=== PATIENT | male | born 1955 | race Caucasian/White ===

== ENCOUNTER → 2017-12-18 11:50 | Outpatient (CLI) | payer OTHER, SELFPAY ==
--- NOTE | 2017-12-18 | DI.MRI.S_ITS ---
PROCEDURE: MR LUMBAR SPINE WO CON INDICATIONS: INTERVERTEBRAL DISC DISORDERS WITH RADICULOPATHY TECHNIQUE: Noncontrast sagittal T1 spin echo and T2 fast echo, sagittal STIR, axial T1 and T2 fast spin echo through the lumbar spine. In cases with scoliosis, additional coronal T2 fast spin echo may be performed. COMPARISON: [facility], CT, ABDOMEN W&WO CONTRAST, 05/14/2016, 12:06. FINDINGS: Image quality: Excellent. Alignment and Curvature: There is grade I L3 on L4 anterolisthesis and L5 on S1 retrolisthesis. Bone Marrow: Marrow is of overall normal signal. Reactive endplate changes are present at L5-S1. No wedge compression deformities. A small cyst is present within the inferior posterior L3 endplate unchanged from the CT dated 05/14/16. Spinal Cord: Conus medullaris terminates at the T12 level. Visualized cord demonstrates normal signal and size. Paraspinous Soft Tissues: No paravertebral masses. L1-L2: Normal appearance. L2-L3: Mild disc bulge. Mild facet and ligamentum flavum hypertrophy. No canal stenosis. Mild bilateral foraminal narrowing. L3-L4: Anterolisthesis. Moderate disc desiccation and height loss. Broad-based disc bulge. Moderate facet and ligamentum flavum hypertrophy. Severe canal stenosis. Severe left and mild right neuroforaminal narrowing. There is flattening of the exiting left nerve root. L4-L5: Mild disc desiccation. Broad-based disc bulge. Mild facet ligamentum flavum hypertrophy. Mild canal stenosis. No neural foraminal stenosis. There is a small posterior focal high intensity zone. L5-S1: Severe disc desiccation and height loss. Extensive reactive endplate changes. Broad-based disc bulge. Moderate facet sclerosis. No canal stenosis. Severe bilateral neuroforaminal stenosis. Small posterior focal high intensity zone. IMPRESSION: 1. Grade I anterolisthesis, disc desiccation and height loss, broad-based disc bulge, and facet and ligamentum flavum hypertrophy at L3-4 with resultant severe canal stenosis and severe left neuroforaminal stenosis. 2. Posterior annular tears at L4-5 and L5-S1. 3. Mild canal stenosis at L4-5 secondary to disc bulge and facet hypertrophy. 4. Severe bilateral neuroforaminal stenosis at L5-S1. 5. Severe degenerative disc disease at L5-S1 with grade I retrolisthesis. Dictated by: Lo Ramos M.D. on 12/18/2017 at 12:31 Approved by: Lo Ramos M.D. on 12/18/2017 at 12:38
== END ==
PROVIDERS: Family Provider Orthopaedic Surgery; PCP Family Medicine Geriatric Medicine; Visit Provider Family Medicine Geriatric Medicine
DX: M51.16 Intervertebral disc disorders with radiculopathy, lumbar region (principal); M51.17 Intervertebral disc disorders with radiculopathy, lumbosacral region; M43.16 Spondylolisthesis, lumbar region; M48.061 Spinal stenosis, lumbar region without neurogenic claudication; M48.07 Spinal stenosis, lumbosacral region
CPT/HCPCS: 72148

== ENCOUNTER 2018-02-27 09:50 | Inpatient (IN) | payer OTHER, SELFPAY ==
[2018-02-05 10:59] VITALS: BMI 22.2
[2018-02-27] VITALS (22 sets, daily range): BP systolic 114–168; BP diastolic 69–99; PULSE 82–102; RESP 10–18; TEMP 36–36.8; O2SAT 93–98; BMI 21.6
--- NOTE | 2018-02-27 | DI.RAD.S_ITS ---
PROCEDURE: XR LUMBAR SPINE 2-3V INDICATIONS: TLIF TECHNIQUE: 2 views of the lumbar spine were acquired. COMPARISON: None. FINDINGS: 2 spot fluoroscopic images demonstrating L3-L4 and L5-S1 posterior spinal fixation with interbody grafts. There is expected intraoperative alignment. Dictated by: Larry Rubio M.D. on 02/27/2018 at 18:30 Approved by: Larry Rubio M.D. on 02/27/2018 at 18:32
[2018-02-27] MEDS: LACTATED RINGERS 1,000 ML 42 ML IV ×2 (11:16→15:41)
--- NOTE | 2018-02-27 12:32 | PM.PREOP ---
Pre-operative Note Interval Note History & Physical reviewed/Exam performed by Physician: Yes Changes to H&P: No
--- NOTE | 2018-02-27 12:32 | PM.OP.1 ---
Operative Date/Time/Diagnoses Date of procedure: 02/27/18 Time of procedure: 17:34 Pre-op diagnosis: Lumbar stenosis with radiculopathy Lumbar spondylolisthesis Post-op diagnosis: same Procedure & Clinicians Procedure: L3-4 anterior fusion with cage L3-4 posterior fusion L5-S1 TLIF (post/post innerbody fusion) with cage L3 through S1 screws Iliac crest bone graft L3-4 laminectomy L5-S1 laminectomy Use of microscope Placement of epidural catheter Same procedure as scheduled: Yes Indications: [age] year old male with intractable pain from stenosis. They had failed conservative management and requested operative intervention. Risks and benefits of surgery were discussed and appropriate consents were obtained. Surgeon: Marty Cash Car Inspection And Repair Manager: Barb Hu Anesthesia Type: General Operative Notes Findings: None Closure Type: primary Specimen(s): none sent Implants & Drains: NuVasive MAS Reline screws NuVasive XLIF cage Globus Rise cage Applied: catheter Estimated Blood Loss (mL): 50 Blood products transfused: none Procedure in detail: Patient was brought to the operating room and intubated on the table. Time-out was performed. They were then rolled over to the lateral decubitus position with the [id number]. The table was bent and they were taped down in the correct position. X-rays were taken to confirm a true AP and lateral. Preoperative antibiotics were given. The left flank was prepped and draped in standard sterile fashion. We were having some difficulties with neuro monitoring. He was having large spikes primarily in the L5 and S1 distribution. We checked all the needles and wires and everything was fine. The patient was not paralyzed but he was under deep anesthetic. We could see fasciculations in his muscles in his back and also down in his calves there spontaneously happening without any neural monitoring. As I needed the upper levels only for the L3-4 XLIF, we elected to proceed at this point as we had good signals at the upper levels. Using fluoroscopy, a 3 cm incision was made above the iliac crest. We bluntly dissected down with Metzenbaum scissors and split the 3 abdominal muscle layers. We dissected out the retroperitoneal space and using finger guidance, brought our 1st dilator down to the psoas muscle. Using neuromonitoring and fluoroscopy, we placed it through the psoas onto the L3-4 disc space in an anterior position and gradually pulled the dilator posteriorly along the disc space. We placed our guidewire and measured our depth for the retractor. We then dilated with the next 2 dilators and then placed our retractor over the dilators. Position was confirmed with fluoroscopy and the retractor was locked down to the bar. We opened up the retractor and checked with neuro monitoring. We then placed the elmer and again checked with neuro monitoring. The retractor was opened further and the ALL retractor was placed. An annulotomy was performed. We then performed a complete diskectomy with ring curette, pituitary, box osteotome. A Green was advanced across the disc space under fluoroscopy to release the lateral annulus on the opposite side. We then used sequentially larger trials and confirmed under fluoroscopy. An XLIF cage was packed with Osteocell bone graft and impacted into the L3-4 disc space with fluoroscopy for the anterior fusion at this level. The wound was irrigated. The retractor was closed down. The elmer was removed. We carefully removed the retractor with direct visualization to make sure there was no neurovascular or abdominal injury. Final x-rays were taken. The muscle fascia was closed, superficial tissue was closed. The skin was closed. Sterile dressing was placed. The patient was then rolled over on the well-padded prone position on the Price table. Our neuro monitoring was much better by this point. He still had some spontaneous activity but it had mostly down in all of the distributions. Using fluoroscopy for localization, a 10 cm incision was made to the left the midline. Used the Bovie to come down to split the fascia. We then began placing our screws. Using fluoroscopy and neuro monitoring, we percutaneously placed Jamshidi needles down the left pedicles of L3, L4, L5 and S1. These were switched to guidewires. We then tapped and placed our screw shanks at L5 and S1. We open up the retractor and cleared out the posterolateral gutter as well as medially along the lamina the gutter was decorticated with a bur on the transverse process and the sacral ala. We then brought in the microscope. A laminectomy was performed at L5-S1 with a bur and Kerrison rongeurs. We cleared out the central canal as well as open up the neural foramen. This required a facetectomy to decompress. At the end we could run the ball probe cephalad caudally across the midline into the foramen and everything was opened. We then began prepping for the TLIF. We resected more of the facet and cleared off medially until we were flush with the pedicle. We carefully retracted the dura and expose the disc space. This was covered with an osteophyte. We used fluoroscopy and broke through the osteophyte and then went into the disc space with paddles and Kayleen. We had used fluoroscopy to advance the paddle down as the patient had an S shaped disc space. We used pituitaries and curettes to prep the disc space. We held the disc space open with the paddle and locked our screws and distraction. We then placed Osteocel bone graft into the disc space at L5-S1. We then impacted the globus Rise cage and expanded it under fluoroscopy. This completed the posterior interbody portion of the TLIF at L5S1. We released our retraction and then we placed our screw heads on, measured and placed a juan francisco. The set screws were locked down The wound was copiously irrigated. A small stab incision was made over the PSIS and a Jamshidi needle was placed into the iliac crest and several mL of bone marrow was aspirated. This was mixed with our locally harvested bone graft as well as Osteocel and placed in the posterolateral gutter for the posterolateral portion of the TLIF at L5-S1. We then went up to L3-4. Again using fluoroscopy and monitoring we tapped and then placed our screws and then opened up our retractor blades. We cleared out the gutter and medially. We decorticated the transverse processes with a bur. We brought the microscope back in. We completed a laminectomy at L3-4 with Kerrisons and a bur. We carefully depress the dura and reached across the opposite side to clear out the central canal. In the end we could sweep the ball probe cephalad, caudally, across the midline, and in the foramen and everything was opened. The wound was irrigated. An epidural catheter was primed with 4mL of 0.5% bupivacaine, 100 mcg fentanyl, 4 mg Duramorph, 1 mg Stadol. The dura was depressed under the cephalad lamina with a ball probe and the epidural catheter was gently advanced 6 cm cephalad. We then locked the screw heads on. The juan francisco was measured, placed, and the set screws locked down. The fascia was then closed. The epidural was then injected without resistance. The catheter was pulled and we closed more over the fascia. We then went to the right-hand side. Again using fluoroscopy, a 10 cm longitudinal incision was made to the right of the midline. We made 2 small fascia incisions at L3-4 and L4-5 We percutaneously placed a Jamshidi needles with fluoroscopy and neuro monitoring on the pedicles of L3, L4, L5, and S1 on the right-hand side. We tapped and then placed our screws with monitoring and fluoroscopy. We placed rods connecting L3-4 and L5-S1. They were locked down and tightened. The wound was irrigated. The fascia was closed. Vancomycin powder was placed in the wounds. The superficial and skin were closed. Sterile dressing was placed. The patient was then rolled over, extubated, brought to the recovery room with no complications. Complications: none Condition: stable Disposition: PACU Plan for aftercare: Inpatient. Up with physical therapy.
[2018-02-27] MEDS: CEFAZOLIN 2 GM/100 ML FROZ.PIGGY IV ×2 (13:23→21:10)
--- NOTE | 2018-02-27 14:11 | SUR.OPER ---
Right lateral on padded OR table. Head on pillow, gel axillary roll, pillow to support left arm. Legs flexed, pillows between legs, gel pad under down leg and ankle. Multiple passes of 3 inch cloth tape across shoulder, hip, upper and lower legs to secure patient on OR table. Prone on spine table, head in foam head support, padded chest and pelvic supports, gel pad at knees, lower legs supported by pillows; nipples, genitalia and toes free of pressure, arms secured on foam padded arm boards at <90 degrees abduction. Tape over blanket at thigh secured to table.
[2018-02-27] MEDS: SODIUM CHLORIDE 0.9% 1,000 ML, GENTAMICIN 80 MG IRR (14:26)
[2018-02-27] MEDS: BUPIVACAINE 0.5% (PF) 4 ML, MORPHINE-PF 4 MG, BUTORPHANOL 1 MG, fentaNYL 100 MCG INJ (14:27)
[2018-02-27] MEDS: VANCOMYCIN 1,000 MG VIAL 1000 MG TOP (14:28)
[2018-02-27] MEDS: THROMBIN (BOVINE) 5,000 UNIT VIAL 5000 UNIT TOP (14:28)
[2018-02-27 15:48] LABS: BUN Creatinine Ratio 21.4 (6-22); Blood Urea Nitrogen 15 mg/dL (9-20); Calcium 8.9 mg/dL (8.4-10.2); Carbon Dioxide 25 mmol/L (22-32); Chloride 104 mmol/L (98-107); Estimated Glomerular Filt Rate > 60.0 mL/min (>60); Glucose 112 mg/dL (80-110); HEMOLYSIS < 15 (0-50); Magnesium 1.6 mg/dL (1.6-2.3); Sodium 138 mmol/L (137-145)
--- NOTE | 2018-02-27 17:59 | SUR.PHASEI ---
On awakening quite confused and restless, but able to redirect restless behavior.
[2018-02-27] MEDS: fentaNYL 100 MCG/2 ML INJ 50 MCG IV ×2 (18:11→18:16)
--- NOTE | 2018-02-27 18:24 | SUR.PHASEI ---
Remains intermittently restless and with some confusion. This is juxtaposed with somnolent states post analgesics.
[2018-02-27] MEDS: LORazepam 2 MG/ML SYRINGE 0.25 MG IV ×2 (18:30→18:37)
--- NOTE | 2018-02-27 18:39 | SUR.PHASEI ---
Lorazepam x2 given for spasm like pain reported. Less restless and again with somnolent periods. Sats dropping with these so O2 started at 2l NC
--- NOTE | 2018-02-27 19:05 | SUR.PHASEI ---
With c/o burning pain to back, ice pack applied with relief quickly reported.
[2018-02-27] MEDS: LACTATED RINGERS 1,000 ML 125 ML IV (19:49)
[2018-02-27] MEDS: CELECOXIB 200 MG CAPSULE 400 MG PO (19:50)
--- NOTE | 2018-02-27 19:54 | PC.NURSE ---
patient up to floor by 1915, awake and alert and oriented; took a couple tries to get the date correct, but eventually remembered everything. lung sounds are clear, heart rate is regular, bowel tones are present. patient denies any nausea, SOB, or dizziness. patient states his pain is mainly from the dressing feeling like it's pulling on skin, this RN checked dressing, no redness or rash observed. ice pack applied, patient states it feels better. muro catheter is in place and draining to gravity. dressings are c/d/i. baseline numbness to left leg/toes still present. no swallowing difficulties noted, patient eating ice cream at this time. medications from home have been sent to pharmacy for lockup. patient states he'd like to keep valuables in his room. patient has been oriented to call JACQUIE napier.
[2018-02-27] MEDS: LISINOPRIL 20 MG TABLET PO (21:08)
[2018-02-27] MEDS: hydrOXYzine pamoate 25 MG CAPSULE PO (21:08)
[2018-02-27] MEDS: TAMSULOSIN 0.4 MG CAPSULE PO (21:08)
[2018-02-27] MEDS: OXYCODONE IR 5 MG TABLET 10 MG PO (21:08)
[2018-02-28] VITALS (7 sets, daily range): BP systolic 125–155; BP diastolic 73–95; PULSE 88–102; RESP 16–18; TEMP 36.4–37.2; O2SAT 95–97
[2018-02-28] MEDS: OXYCODONE IR 5 MG TABLET 10 MG PO ×7 (00:17→23:57)
[2018-02-28] MEDS: CYCLOBENZAPRINE 10 MG TABLET PO ×2 (00:18→20:07)
--- NOTE | 2018-02-28 01:04 | PC.NURSE ---
0018 C/O muscle spasms & pain to. back & side. Rated pain level @ 7/10, requested Flexeril 10 mg. admin. Also medicated with 10 mg. of Percolone, will cont. POC & monitor.
[2018-02-28] MEDS: hydrOXYzine pamoate 25 MG CAPSULE PO ×3 (03:14→23:58)
[2018-02-28] MEDS: CEFAZOLIN 2 GM/100 ML FROZ.PIGGY IV (04:56)
[2018-02-28] MEDS: SODIUM CHLORIDE 0.9% FLUSH 10 ML IV ×3 (06:22→20:08)
--- NOTE | 2018-02-28 06:32 | PC.NURSE ---
Pt. refusing ice pack to his back. Did not sleep last night C/O noises from his IV pump & pulse oximeter. Was OOB @ 0410 & moving in bed constantly. Noted his dressings has moderate amount of bloody drainage this morning. Will report to day RN.
[2018-02-28 06:43] LABS: Hematocrit 38.6 % (41-53); Hemoglobin 13.2 g/dL (13.5-17.5)
[2018-02-28 06:48] LABS: BUN Creatinine Ratio 17.1 (6-22); Blood Urea Nitrogen 12 mg/dL (9-20); Carbon Dioxide 29 mmol/L (22-32); Chloride 100 mmol/L (98-107); Estimated Glomerular Filt Rate > 60.0 mL/min (>60); Glucose 134 mg/dL (80-110); HEMOLYSIS < 15 (0-50); Potassium 3.8 mmol/L (3.4-5.1); Sodium 139 mmol/L (137-145)
--- NOTE | 2018-02-28 07:54 | PM.PNPO.1 ---
Subjective Date Patient Seen: 02/28/18 Time Patient Seen: 07:54 Interval history: He is doing very well today. No problems in the legs. Just some slight discomfort in the back. Exam Vital Signs (past 8 hours): - 02/28/18 03:45 Temperature 97.8 F Pulse Rate 98 H Respiratory Rate 18 Blood Pressure 155/95 H Pulse Oximetry 95 Oxygen Delivery Method Room Air Oxygen Flow Rate 2 Const Orientation: alert and oriented x3 Back/Spine/Pelvis Other: Moderate drainage on posterior dressing. 5/5 motor both lower extremities. Objective Labs Result Diagrams: 02/28/18 05:45 02/28/18 05:45 Labs: Laboratory Results - last 24 hr 02/27/18 02/28/18 02/28/18 15:30 05:45 05:45 Hgb 13.2 L Hct 38.6 L Sodium 138 139 Potassium 4.0 3.8 Chloride 104 100 Carbon Dioxide 25 29 BUN 15 12 Creatinine 0.70 0.70 Estimated GFR > 60.0 > 60.0 BUN/Creatinine Ratio 21.4 17.1 Glucose 112 H 134 H Calcium 8.9 9.0 Magnesium 1.6 Assessment & Plan Post-op Postoperative Procedures Operation Date: 02/27/18 12:15 Actual Procedures Side Surgeon p L3-4, L5-s1 Laminectomy & Ant/Post Instru. fusion w/bone graft Marty Cash MD He is doing very well after his laminectomy infusion. Mobilize today with physical therapy. Anticipate discharge home tomorrow.
[2018-02-28] MEDS: ASCORBIC ACID 500 MG TABLET 2500 MG PO (09:03)
[2018-02-28] MEDS: CELECOXIB 200 MG CAPSULE PO ×2 (09:04→20:07)
[2018-02-28] MEDS: HYDROXYCHLOROQUINE 200 MG TABLET PO (09:05)
[2018-02-28] MEDS: DOCUSATE 100 MG CAPSULE PO (09:05)
[2018-02-28] MEDS: TAMSULOSIN 0.4 MG CAPSULE PO ×2 (09:06→20:08)
--- NOTE | 2018-02-28 09:48 | PC.NURSE ---
Addendum entered by Jalyn Perry R.N. 02/28/18 14:49: DC - pt agrees to stay tonight, called [facility] who will speak to Goldie RICKS and inform that dc cancelled. Pt declines pain medication at this time, at bedtime to help me sleep., continues up and ambul in hallway, gait steady. Original Note: Addendum entered by Jalyn Perry R.N. 02/28/18 14:42: - pt attempted several times to void, unsuccessful w/water running, standing in br, bladder scan w/480ml, contacted ortho office for instructions and to cancel dc, did in/out cath with immed return concentrated urine. Original Note: Addendum entered by Jalyn Perry R.N. 02/28/18 12:03: gi - pt up ambul room, states went into br and had emesis I had too many pills this am, denies nausea now and declines antiemectic, discussed medications and pt does have hx taking oxycodone w/o difficulty. Original Note: Addendum entered by Jalyn Perry R.N. 02/28/18 11:16: MS/[facility]TE[facility]/DC - pt req dc home, does not want stay until tomorrow due financial costs, spoke to Goldie RICKS and she did text , pt needs to void after muro removed and need to wait until the bone stimulator is delivered, pt has been up and moving impulsively in room, advised to limit activity, no BTL. ambul hallway with phys therapy, gait steady, OT in, pt coversite dsg did show shadow drainage throughout, removed, staplied incisions intact, replaced with barrier dressing. Original Note: AM NOTE - states no pain when lying bed, incr 4-5 when up mobilizing during night, hx sciatica le, denies now, no numbness hands or feet, discussed pain medications and given 10mg oxycodone and 25mg vistaril after breakfast, aware constipation and narcotics, given stool softeners, declines addl laxatives, when up dangle, telfa dsg back removed, old serosang drainage, parallel stapled incisions intact, some redness and blister at dsg margins, cleaned and abx ointment applied, coversite over, dsg l flank w/intact sutures, no drainage, replaced with coversite, muro balloon deflated and dc'd w/o difficulty, to chair.
--- NOTE | 2018-02-28 09:54 | PT.IIE ---
Current Diagnoses Major depressive disorder, single episode, unspecified (02/27/18) Anxiety disorder, unspecified (02/27/18) Unspecified osteoarthritis, unspecified site (02/27/18) Spondylolisthesis, lumbar region (02/27/18) Spinal stenosis, lumbar region with neurogenic claudication (02/27/18) Surgery Performed Operation Date: 02/27/18 12:15 Actual Procedures p L3-4, L5-s1 Laminectomy & Ant/Post Instru. fusion w/bone graft - Marty Cash MD Surgical History (Last Updated 02/05/18 @ 13:11 by Justa Bradley, RN) S/P cervical spinal fusion (Acute ~2009) Medical History (Last Updated 02/05/18 @ 13:34 by Justa Bradley, RN) Anxiety (Acute) Arthritis (Acute) BPH (benign prostatic hyperplasia) (Acute) Back pain (Acute) Depression (Acute) Fractures (Acute) History of hepatitis C (Acute ~2014) History of liver cancer (Acute ~2014) Numbness and tingling of left leg (Acute) Poor appetite (Acute) Psoriasis (Acute) Tinnitus (Acute) Physical Therapy Inpatient Evaluation/Re-Eval M1 PT/OT-IP Prior Functional Status Start: 02/28/18 11:50 Freq: NEEDED Status: Active Protocol: Document 02/28/18 09:54 AB (Rec: 02/28/18 11:59 AB [id number]) Medical Review Prior Functional Status Medical History Reviewed Yes Communication able to make needs known Mobility and Gait stated that he is independent with all mobilities and ambulation without AD Social History Household Members none Living Arrangements House Number of Floors (Floors) One Floor Number of Stairs To Enter/Railing? 3 steps to enter with bilateral rails Home Environment Standard Height Toilet Walk in Shower Home Equipment Hand Held Shower Grab Bars Near Toilet Grab Bars In Shower Additional Social History Comment has a walking stick M2 PT-IP Current Condition Start: 02/28/18 11:50 Freq: NEEDED Status: Active Protocol: Document 02/28/18 09:54 AB (Rec: 02/28/18 11:59 AB [id number]) Physical Therapy Current Condition Current Condition Evaluation Date 02/28/18 Treatment Diagnosis s/p L3-4 ant/post fusion, L5S1 TLIF, lami; difficulty in walking Onset Date 02/27/18 Precautions Lumbar Precautions Log Roll No Twisting Limit Bending Lifting Restriction of 10 lbs Gait Belt above Incisional Area M3 PT-IP Subjective Start: 02/28/18 11:50 Freq: NEEDED Status: Active Protocol: Document 02/28/18 09:54 AB (Rec: 02/28/18 11:59 AB [id number]) Subjective Physical Therapy Visit Type Type Initial Evaluation Visit Start Time 09:54 Visit Stop Time 10:15 Total Visit Minutes 21 Number of FIRE EQUIPMENT INSPECTOR Visits 0 Physical Therapy Visit Comments Patient Comments i am going home today Therapy Pain Assessment Pain When Pain Assessed At Rest Pain Present Pain Present Pain Reported Location Back Intensity 2 Scale Used Numeric (1 - 10) Pain Management Techniques Apply Cold Timing of Activity with Medications M4 PT-IP Mobility and Gait Start: 02/28/18 11:50 Freq: NEEDED Status: Active Protocol: Document 02/28/18 09:54 AB (Rec: 02/28/18 11:59 AB [id number]) PT-Bed Mobility Assessment Rolling Type of Rolling Log Rolling Level of Assist Independent Supine to Sit Supine to Sit Independent Sit to Supine Sit to Supine Independent Scooting Scooting to Edge of Bed Independent Scooting Up and Down in Bed Independent PT-Transfer Assessment Sit to and From Stand Sit to and from Stand Independent Equipment Transfer Assistive Device Gait Belt Orthotic/Prosthetic Devices or Brace: No Gait Assessment Gait Gait Assistance Required: Standby Assistance Distance (Feet) 125 Able to Maintain Weight Bearing Status Yes During Gait Assistive Devices Assistive Device None Gait Belt Orthotic/Prosthetic Devices or Brace: No Factors Limiting Gait Function Factors Limiting Gait Function Limited Range of Motion Pain Poor Safety Awareness Comments Gait Comments pt can be impulsive Stair Climbing Assessment Evaluation Level of Assist On Stairs Standby Assistance Devices Stair Climbing Assistive Devices Left Railing Right Railing Technique/Endurance Stair Climbing Direction Ascend and Descend Stair Climbing Technique Step to Step Number of Steps Climbed 3 Query Text: PT-Balance Assessment Sitting Balance and Reactions Static Sitting Balance Ability Good Dynamic Sitting Balance Ability Good Standing Balance and Reactions Static Standing Balance Ability Good Dynamic Standing Balance Ability Fair Device Used without AD M5 PT-IP Objective Assessments Start: 02/28/18 11:50 Freq: NEEDED Status: Active Protocol: Document 02/28/18 09:54 AB (Rec: 02/28/18 11:59 AB [id number]) Orientation Orientation/Cognition Level of Alertness Alert Orientation Name Age Birthday Month Date Year Day of Week Place Situation Safety Awareness Understands Safety Issues Memory Description No Deficits Noted Gross Range of Motion Lower Extremity ROM Assessment Within Functional Limits Strength Lower Extremity Strength Assessment Within Functional Limits Coordination Assessment Gross Coordination Gross Coordination WNL Muscle Tone Muscle Tone WNL Yes M6 PT-IP Treatment Start: 02/28/18 11:50 Freq: NEEDED Status: Active Protocol: Document 02/28/18 09:54 AB (Rec: 02/28/18 11:59 AB [id number]) Physical Therapy Treatment Education Education Provided Precautions Weight Bearing Status Post-Op Packet Safety Other Treatments Other Treatment Performed educated on back precautions and log roll bed mobility M7 PT-IP Assessment and Plan Start: 02/28/18 11:50 Freq: NEEDED Status: Active Protocol: Document 02/28/18 09:54 AB (Rec: 02/28/18 11:59 AB [id number]) PT Summary Assessment and Plan Potential Rehabilitation Potential Good Status of Condition at Evaluation Stable Summary Impairments Pain ROM Strength Balance Coordination Sensation Tone Cognition Bed Mobility Transfers Gait Activity Tolerance Assessment Summary pt doing well with mobility and plans to go home today. stated that his friends and neighbors can assist him if needed. pt may go home when medically stable. Goals Gait Goal Independent Gait Distance 200 Other Goals up/down 3 steps with B rail mod I Days to Meet Goals 2 Frequency of Treatment Frequency Of Treatment Twice a Day Treatment Plan Physical Therapy Treatment Plan Bed Mobility Training Transfer Training Gait Training Therapeutic Exercise Balance Retraining Post Op Education Discharge Planning Hot or Cold Pack Neuromuscular Re-ed Coordination Retraining Manual Therapy Other Recommendations and Next Treatment ambulation, stair climbing Focus Recommendations To Nursing Amount of Assist Needed Standby Assistance Discharge Recommendations PT Discharge Recommendations Home
--- NOTE | 2018-02-28 12:29 | OT.IP.EVAL ---
Current Diagnoses Major depressive disorder, single episode, unspecified (02/27/18) Anxiety disorder, unspecified (02/27/18) Unspecified osteoarthritis, unspecified site (02/27/18) Spondylolisthesis, lumbar region (02/27/18) Spinal stenosis, lumbar region with neurogenic claudication (02/27/18) Surgery Performed Operation Date: 02/27/18 12:15 Actual Procedures p L3-4, L5-s1 Laminectomy & Ant/Post Instru. fusion w/bone graft - Marty Cash MD Past Medical History (Last Updated 02/05/18 @ 13:34 by Justa Bradley, RN) Anxiety (Acute) Arthritis (Acute) BPH (benign prostatic hyperplasia) (Acute) Back pain (Acute) Depression (Acute) Fractures (Acute) History of hepatitis C (Acute ~2014) History of liver cancer (Acute ~2014) Numbness and tingling of left leg (Acute) Poor appetite (Acute) Psoriasis (Acute) Tinnitus (Acute) Surgical History (Last Updated 02/05/18 @ 13:11 by Justa Bradley, MARY) S/P cervical spinal fusion (Acute ~2009) Occupational Therapy Inpatient Evaluation/Re-Eval M1 PT/OT-IP Prior Functional Status Start: 02/28/18 11:50 Freq: NEEDED Status: Active Protocol: Document 02/28/18 09:54 AB (Rec: 02/28/18 11:59 AB [id number]) Medical Review Prior Functional Status Medical History Reviewed Yes Communication able to make needs known Mobility and Gait stated that he is independent with all mobilities and ambulation without AD Social History Household Members none Living Arrangements House Number of Floors (Floors) One Floor Number of Stairs To Enter/Railing? 3 steps to enter with bilateral rails Home Environment Standard Height Toilet Walk in Shower Home Equipment Hand Held Shower Grab Bars Near Toilet Grab Bars In Shower Additional Social History Comment has a walking stick M1 PT/OT-IP Prior Functional Status Start: 02/28/18 12:08 Freq: NEEDED Status: Active Protocol: Document 02/28/18 12:09 [facility] (Rec: 02/28/18 12:29 [facility] [id number]) Medical Review Prior Functional Status Medical History Reviewed Yes Communication able to make needs known Mobility and Gait stated that he is independent with all mobilities and ambulation without AD Activities of Daily Living and IADL's Pt states due to pain took him longer to do all Adl and IADl needs. Prior Functional Level (Other details) Pt works at [employer]. Social History Household Members none Living Arrangements House Number of Floors (Floors) One Floor Number of Stairs To Enter/Railing? 3 steps to enter with bilateral rails Home Environment Standard Height Toilet Walk in Shower Home Equipment Hand Held Shower Grab Bars Near Toilet Grab Bars In Shower Additional Social History Comment has a walking stick M2 OT-IP Current Condition Start: 02/28/18 12:08 Freq: Status: Active Protocol: Document 02/28/18 12:09 [facility] (Rec: 02/28/18 12:29 [facility] [id number]) Occupational Therapy Current Condition Current Condition Evaluation Date 02/28/18 Treatment Diagnosis Lumbar Stenosis Diagnosis Onset Date 02/27/18 Post Operative Precautions Lumbar Precautions Log Roll No Twisting Limit Bending Lifting Restriction of 10 lbs Gait Belt above Incisional Area Weight Bearing Status Weight Bearing Status Full Weight Bearing M3 OT- IP Subjective and Pain Start: 02/28/18 12:08 Freq: Status: Active Protocol: Document 02/28/18 12:09 [facility] (Rec: 02/28/18 12:29 [facility] [id number]) OT- Subjective Occupational Therapy Visit Type Type Initial Evaluation Visit Start Time 10:30 Visit Stop Time 10:45 Total Visit Minutes 15 Occupational Therapy Visit Comments Patient/Caregiver Goals Pt wanting to go home today. OT Pain Assessment Pain When Pain Assessed At Rest Pain Present Pain Present Denied Pain M4 OT- IP ADL's Start: 02/28/18 12:08 Freq: Status: Active Protocol: Document 02/28/18 12:09 [facility] (Rec: 02/28/18 12:29 [facility] [id number]) OT ADL-Dressing General Eval Upper Body Dressing Ability Independent Lower Body Dressing Ability Standby Assistance Comments OT Dressing Comments Pt independent for UB dressing and LB dressing vc to sit to dario pants/brief, however pt insistent to lean against the wall to dario for LB dressing needs. Pt states does not want any LB AED , pt educated for all LB AED. OT ADL-Toileting General Evaluation Toileting Ability Independent OT ADL-Bathing Comments OT Bathing Comments Pt did not want ot shower, states has chair, and grab bar for walk in shower. M5 OT- IP IADL's Start: 02/28/18 12:08 Freq: Status: Active Protocol: Document 02/28/18 12:09 [facility] (Rec: 02/28/18 12:29 [facility] [id number]) OT-Instrumental Activities of Daily Living Medication Management Medication Management No Deficits Identified Money Management Money Management No Deficits Identified Meal Preparation Meal Preparation Comments Pt states neighbors to bring meals otherwise just make soup . Manager Mountain Manager Mountain Comments Pt states will do so slowly. Educated to be sure not to lift more than 10lbs and get assist for IADL needs. M6 OT- IP Functional Cognition Start: 02/28/18 12:08 Freq: Status: Active Protocol: Document 02/28/18 12:09 [facility] (Rec: 02/28/18 12:29 [facility] [id number]) Cognitive Factors Limiting Selfcare Function Cognitive Ability Level of Alertness Alert Patient Orientation Name Age Birthday Month Date Year Day of Week Place Situation Attention Span Ability Capable of Focused Attention Capable of Sustained Attention Ability to Follow Commands Able to Follow Multi-Step Commands Memory Description No Deficits Noted Safety Awareness Underestimates Need for Assistance Problem Solving Ability No deficits Noted Cognitive Comments Cognitive Assessment Comments Pt a bit impulsive and needs vc to slow down. Pt also needing vc to sit for LB dressing needs. Pt states good understanding for all back precautions, however fair safety to incorporate into needs. OT- Vision and Hearing OT- Hearing Assessment OT- Hearing Assessment WFL OT- Vision Assessment Visual Acuity WFL M7 OT- IP Mobility and Balance Start: 02/28/18 12:08 Freq: Status: Active Protocol: Document 02/28/18 12:09 [facility] (Rec: 02/28/18 12:29 [facility] [id number]) OT- Bed Mobility Assessment Rolling Type of Rolling Roll to Left Level of Assistance Independent Supine to Sit Supine to Sit Assist Independent Sit to Supine Sit to Supine Assist Independent OT-Transfer Assessment Sit to and From Stand Sit to and from Stand Independent Transfers Transfer Ability Independent Technique Transfer Destination Bed Chair Toilet Transfer Technique Stand Step Pivot Devices Transfer Assistive Devices None Gait Belt Comments Mobility Comments MOD I in the room, however vc to incorporate back precautions as pt tends to be a bit impulsive. OT- Balance Assessment Sitting Balance and Reactions Static Sitting Balance Ability Normal Dynamic Sitting Balance Ability Normal Standing Balance and Reactions Static Standing Balance Ability Normal Dynamic Standing Balance Ability Good M8 OT- IP Objective Assessments Start: 02/28/18 12:08 Freq: Status: Active Protocol: Document 02/28/18 12:09 [facility] (Rec: 02/28/18 12:29 [facility] [id number]) OT Gross Range of Motion Upper Extremity Range of Motion Assessment Within Functional Limits M9 OT- IP Assessment and Plan Start: 02/28/18 12:08 Freq: Status: Active Protocol: Document 02/28/18 12:09 [facility] (Rec: 02/28/18 12:29 [facility] [id number]) OT Summary Assessment and Plan Potential Rehabilitation Potential Excellent Analytic Complexity at Evaluation Low Summary OT Impairments Functional Cognition Progress Towards Goals Progressing Toward Goals Assessment Summary Pt doing well, main barrier pt tends to move fast and at times forgets to incorporate back precautions. Pt has supportive neighbors to assist with IADL needs. Goals Patient/Caregiver Education Goal Demonstrate Post-Op Precautions Days to Meet Goals 1 Frequency of Treatment Frequency Of Treatment Once a Day Treatment Plan OT Treatment Plan Functional Cognition Training Discharge Recommendations OT Discharge Recommendations Home with Assistance
--- NOTE | 2018-02-28 14:27 | PT.IPTN ---
Current Diagnoses Major depressive disorder, single episode, unspecified (02/27/18) Anxiety disorder, unspecified (02/27/18) Unspecified osteoarthritis, unspecified site (02/27/18) Spondylolisthesis, lumbar region (02/27/18) Spinal stenosis, lumbar region with neurogenic claudication (02/27/18) Surgery Performed Operation Date: 02/27/18 12:15 Actual Procedures p L3-4, L5-s1 Laminectomy & Ant/Post Instru. fusion w/bone graft - Marty Cash MD Physical Therapy Treatment Note M2 PT-IP Current Condition Start: 02/28/18 11:50 Freq: NEEDED Status: Active Protocol: Document 02/28/18 09:54 AB (Rec: 02/28/18 11:59 AB [id number]) Physical Therapy Current Condition Current Condition Evaluation Date 02/28/18 Treatment Diagnosis s/p L3-4 ant/post fusion, L5S1 TLIF, lami; difficulty in walking Onset Date 02/27/18 Precautions Lumbar Precautions Log Roll No Twisting Limit Bending Lifting Restriction of 10 lbs Gait Belt above Incisional Area M3 PT-IP Subjective Start: 02/28/18 11:50 Freq: NEEDED Status: Active Protocol: Document 02/28/18 14:23 AB (Rec: 02/28/18 14:25 AB [id number]) Subjective Physical Therapy Visit Type Notes checked on pt and pt stated that he does not think he needs PT at this time. stated that he is not going home today due to his bladder, that he still does not have sensation in there for him to use the toilet. stated that he will just walk around by himself. pt did not complain of any pain at this time. pt is cleared to ambulate in room at this time but will continue to monitor for consistency with ambulation for long distances especially if pain progresses. will f/u tomorrow morning.
--- NOTE | 2018-02-28 15:36 | CM.IDA ---
Addendum entered by NORAH Oden 02/28/18 15:37: Faxed initial clinicals to [place] Original Note: Discharge Planning/Care Management CM Discharge Assessment Start: 02/28/18 15:31 Freq: Status: Active Protocol: Document 02/28/18 15:31 [facility] (Rec: 02/28/18 15:36 HA [id number]) Discharge Planning Assessment Assigned Hide Tanner NORAH Jay DPOA/Assigned Designee Name sharon Brownlee Contact Information [phone] Advance Directives? No: Mailed form Advance Directives on File No History Provided By Patient Prior Living Arrangements House Household Members none Type of transporation used prior to Drives own vehicle admit Independent with ADL's Yes: No AD, indp ambulator Is patient alert and oriented? Yes Barriers to Discharge No Comment Pt eager to leave today, home w/friends and neighbors to assist. Therapy team agrees he will be safe to DC back home w/outpt f/u. This afternoon nursing notes indicate pt unable to void this afternoon and has agreed to staying the evening. Likely home tomorrow. Discharge Plan Home Transportation Arrangement Friends Referrals Initiated None needed Whiteboard Updated in Patient Room with Yes name and ext. # of Hide Tanner Review Status In Process
[2018-02-28] MEDS: METOCLOPRAMIDE 10 MG/2 ML INJ IV (15:37)
[2018-02-28] MEDS: LISINOPRIL 20 MG TABLET PO (20:06)
--- NOTE | 2018-02-28 21:52 | PC.NURSE ---
patient's dressing about 75% saturated by 2129, this RN changed dressing and placed additional gauze over right incision as that is where drainage is coming from. Patient has successfully voided at this time, first 150 ml was at around 1700, then he urinated another 400 ml at 2100. patient has been independent in the room, able to ambulate safely, using call light appropriately.
[2018-03-01] MEDS: OXYCODONE IR 5 MG TABLET 10 MG PO ×4 (03:41→13:22)
[2018-03-01 03:50] VITALS: BP 146/78; PULSE 91; RESP 16; TEMP 36.9; O2SAT 96
--- NOTE | 2018-03-01 04:23 | PC.NURSE ---
Rated pain level 5-6/10, but requesting 2 tabs. of Percolone. Indep. & ambulating to the BR. Drsg. to lower back saturated with bloody drainage. Changed dressing, yudy intact & tape blisters noted from the original drsg. Will cont. POC & monitor.
[2018-03-01] MEDS: CYCLOBENZAPRINE 10 MG TABLET PO (06:50)
[2018-03-01 07:30] VITALS: BP 125/63; PULSE 90; RESP 18; TEMP 37.1; O2SAT 91
--- NOTE | 2018-03-01 08:55 | PM.DS.1 ---
History of Present Illness Date Patient Seen: 03/01/18 Chief complaint: [id number] Narrative: Patient seen bedside s/p L3-4. XLIF, L5-S1, TLIF with cage, posterior instrumented fusion on 02/27/[address] Cash. Patient is POD #2. Patient is doing better, his pain is controlled pain medication and his urinary retention has resolved. However he did have to be straight cathed twice in the last 24 hrs. He received his bone stimulator yesterday but states that he did not receive instructions on how to use it. He denies chest pain shortness of breath or calf pain. He denies numbness and tingling. He did have some minor bleeding does dressing yesterday, however, it is likely to the amount of movement that he was doing. Dressing is currently clean dry intact. Discharge Providers Date of admission: 02/27/18 09:50 Primary care physician: Oni Solo MD Consults: 02/27/18 19:19 Consult to Occupational Therapy Evaluate & Treat Comment: Physician Instructions: Evaluate and treat Consult to Physical Therapy Evaluate & Treat Comment: Physician Instructions: Evaluate and Treat 02/27/18 19:34 Consult to Respiratory Therapy Evaluate & Treat Comment: Physician Instructions: Evaluate and treat Discharge provider: Goldie Armendariz PA-C Discharge Date: 03/01/18 Summary Discharge Diagnosis: 1. Spondylolisthesis lumbar region 2. Spinal stenosis of lumbar region with neurogenic claudication Hospital Course: Patient was admitted to the hospital status post L3-4. XLIF, L5-S1, TLIF with cage, posterior instrumented fusion on 02/27/[address] Cash. Patient tolerated the procedure well with no major complications. Patient was transition to the acute care floor and placed on a standard spinal postoperative protocol pathway. Patient was seen by Physical therapy and recommended for discharge home. Patient had urinary retention on 02/28/2018, however, this had resolved by 03/01/2018. Patient was stable and ready for discharge on 03/01/2018. Exam Vital Signs (past 8 hours): - 03/01/18 03:50 03/01/18 07:30 Temperature 98.4 F 98.7 F Pulse Rate 91 H 90 Respiratory Rate 16 18 Blood Pressure 146/78 H 125/63 Pulse Oximetry 96 91 Oxygen Delivery Method Room Air Oxygen Flow Rate 2 Narrative Exam Narrative: Well-developed well-nourished no acute distress. Alert and oriented x3. Dressing on the lumbar spine is clean dry and intact. No erythema of the surrounding area. He is neurovascularly intact in bilateral lower extremities. Calves are soft and compressible. Objective Labs Result Diagrams: 02/28/18 05:45 02/28/18 05:45 Discharge Plan Discharge Plan Patient Disposition: Home Discharge Med Rec/Prescriptions Prescriptions: New docusate sodium 100 mg Capsule 100 mg PO BID Qty: 0 RF: 0 oxycodone 5 mg Tablet 5 mg PO Q4H PRN (Reason: Pain, Moderate (4-6)) Qty: 40 RF: 0 hydroxyzine pamoate 25 mg Capsule 25 mg PO Q4HR PRN (Reason: Nausea And Vomiting) Qty: 60 RF: 0 Continue cyclobenzaprine 10 mg Tablet 10 mg PO TID PRN (Reason: Pain/Spasma) RF: 0 lisinopril [Zestril] 20 mg Tablet 20 mg PO BEDTIME RF: 0 tamsulosin [Flomax] 0.4 mg Capsule 0.4 mg PO BID RF: 0 ibuprofen 200 mg Tablet 600 mg PO TID PRN (Reason: Pain) RF: 0 hydroxychloroquine [Plaquenil] 200 mg Tablet 200 mg PO DAILY RF: 0 clobetasol 0.05 % Cream 1 applic TOPICAL DAILY RF: 0 ascorbic acid (vitamin C) [Vitamin C] 500 mg Tablet 2,500 mg PO DAILY RF: 0 Discontinued oxycodone 5 mg Tablet 5 mg PO Q6H PRN (Reason: Pain) RF: 0 Follow up/Referrals: Oni Solo MD [Primary Care Provider] - (follow up with your primary care provider) Marty Cash MD [Family Provider] - (Follow up 03/12/18 at 1pm with Randall Gongora PA-C at [facility] office) Provider Discharge Instructions Diet: Diet as Tolerated Activity: Weightbearing as tolerated, not lifting greater than 5 lbs, no twisting or bending Cold/Heat Therapy: Apply ice 20 minutes at a time at least hourly while awake as needed for swelling/pain. Skin/Wound/Dressing Care Report to your healthcare provider any signs of infection, such as:: chills, fever, night sweats, increased pain, unusual drainage and unusual redness Dressing: Change dressing POD #5, may shower then. Visit Report/Discharge Packet Instructions: Oxycodone, Hydroxyzine, DI for Transforaminal Lumbar Interbody Fusion Visit Report Forms: Stroke Signs & Symptoms Discharge Data Primary Care Provider: Oni Solo Attending Provider: Marty Cash Admit Date/Time: 02/27/18 09:50
--- NOTE | 2018-03-01 09:29 | OT.IP.TRT ---
Current Diagnoses Major depressive disorder, single episode, unspecified (02/27/18) Anxiety disorder, unspecified (02/27/18) Unspecified osteoarthritis, unspecified site (02/27/18) Spondylolisthesis, lumbar region (02/27/18) Spinal stenosis, lumbar region with neurogenic claudication (02/27/18) Surgery Performed Operation Date: 02/27/18 12:15 Actual Procedures p L3-4, L5-s1 Laminectomy & Ant/Post Instru. fusion w/bone graft - Marty Cash MD Occupational Therapy Treatment Note M2 OT-IP Current Condition Start: 02/28/18 12:08 Freq: Status: Active Protocol: Document 02/28/18 12:09 [facility] (Rec: 02/28/18 12:29 [facility] [id number]) Occupational Therapy Current Condition Current Condition Evaluation Date 02/28/18 Treatment Diagnosis Lumbar Stenosis Diagnosis Onset Date 02/27/18 Post Operative Precautions Lumbar Precautions Log Roll No Twisting Limit Bending Lifting Restriction of 10 lbs Gait Belt above Incisional Area Weight Bearing Status Weight Bearing Status Full Weight Bearing M3 OT- IP Subjective and Pain Start: 02/28/18 12:08 Freq: Status: Active Protocol: Document 03/01/18 09:28 [facility] (Rec: 03/01/18 09:29 [facility] [id number]) OT- Subjective Occupational Therapy Visit Type Type Patient Refusal Notes Pt going home today and not wanting to be seen for OT.
[2018-03-01] MEDS: TAMSULOSIN 0.4 MG CAPSULE PO (09:41)
[2018-03-01] MEDS: SODIUM CHLORIDE 0.9% FLUSH 10 ML IV (09:42)
[2018-03-01] MEDS: CELECOXIB 200 MG CAPSULE PO (09:42)
[2018-03-01] MEDS: hydrOXYzine pamoate 25 MG CAPSULE PO (09:43)
[2018-03-01] MEDS: HYDROXYCHLOROQUINE 200 MG TABLET PO (09:56)
--- NOTE | 2018-03-01 10:35 | PC.NURSE ---
Addendum entered by Jalyn Perry R.N. 03/01/18 13:58: DC - when ready for taxi, flattening machine operator assisted to with all belongings, pt works for [employer] and has help and arranged for to meet him at [facility]. Original Note: Addendum entered by Jalyn Perry R.N. 03/01/18 13:34: PAIN/DC - the earlier oxycodone and vistaril helped pt rest and improved pain mgt, up ambul in room, planning [place] [address], [employer] taxi arranged for transport, given 10mg oxycodone prior to discharge, belongings gathered, including return of his own medications from pharmacy, hep lock dc'd, belongings packed, including glasses, shoes, books, duffle bag, bone stimulator. Original Note: AM NOTE - pt awakens during shift report, irritable, complaint pain, incr r torso area, the dsg changed earlier cdi, after breakfast, pt is up ambul in hallway, some shadow drainage prox end dsg, some red markings from previous telfa dsg, pt asked about his bone stimulator, per pt, no instructions how to use, spoke to Goldie Duong PAC and reported to pt that he should bring the device to his 1st post op visit for instructions, no nausea this am, continues impulsive and restless, dc orders rec'd and [place] [address], does require assist to pharmacy prior to taxi out to [facility], discussed with flattening machine operator and will go early to drop off medication before discharge, given 10mg oxycodone and then ret bed for nap.
[2018-03-01 11:55] VITALS: BP 131/75; PULSE 97; RESP 16; TEMP 36.9; O2SAT 97
--- NOTE | 2018-03-01 12:19 | PT.IPTN ---
Current Diagnoses Major depressive disorder, single episode, unspecified (02/27/18) Anxiety disorder, unspecified (02/27/18) Unspecified osteoarthritis, unspecified site (02/27/18) Spondylolisthesis, lumbar region (02/27/18) Spinal stenosis, lumbar region with neurogenic claudication (02/27/18) Surgery Performed Operation Date: 02/27/18 12:15 Actual Procedures p L3-4, L5-s1 Laminectomy & Ant/Post Instru. fusion w/bone graft - Marty Cash MD Physical Therapy Treatment Note M2 PT-IP Current Condition Start: 02/28/18 11:50 Freq: NEEDED Status: Active Protocol: Document 02/28/18 09:54 AB (Rec: 02/28/18 11:59 AB [id number]) Physical Therapy Current Condition Current Condition Evaluation Date 02/28/18 Treatment Diagnosis s/p L3-4 ant/post fusion, L5S1 TLIF, lami; difficulty in walking Onset Date 02/27/18 Precautions Lumbar Precautions Log Roll No Twisting Limit Bending Lifting Restriction of 10 lbs Gait Belt above Incisional Area M3 PT-IP Subjective Start: 02/28/18 11:50 Freq: NEEDED Status: Active Protocol: Document 03/01/18 12:17 AB (Rec: 03/01/18 12:18 AB [id number]) Subjective Physical Therapy Visit Type Notes checked on pt and pt still independent with mobility in his room. stated that he does not think he needs PT at this time and wait until he goes home. pt refused PT.
== END 2018-03-01 14:01 | disposition home or self-care (01) | DRG 455 ==
PROVIDERS: Anesthesiology; Admitting Provider Orthopaedic Surgery; Family Provider Orthopaedic Surgery; PCP Family Medicine Geriatric Medicine; Visit Provider Orthopaedic Surgery
PROC: 0SG00A0 Fusion of Lumbar Vertebral Joint with Interbody Fusion Device, Anterior Approach, Anterior Column, Open Approach (ICD-10-PCS; CPT 22558; principal; 2018-02-27 12:15)
DX: M43.16 Spondylolisthesis, lumbar region (principal); M48.062 Spinal stenosis, lumbar region with neurogenic claudication; F17.210 Nicotine dependence, cigarettes, uncomplicated; R33.9 Retention of urine, unspecified
CPT/HCPCS: 36415; 72100; 76000; 80048; 83735; 85014; 85018; 94762; 97161; 97165; 99406; C1776; C1788; J0330; J0595; J0690; J1100; J2060; J2250; J2274; J2405; J2704; J2765; J3010

== ENCOUNTER → 2018-04-17 18:40 | Outpatient (REF) | payer OTHER, SELFPAY ==
[2018-02-27 15:57] VITALS: BMI 21.6
[2018-04-17 20:11] LABS: Alanine Aminotransferase 58 IU/L (21-72); Albumin 4.2 g/dL (3.5-5.0); Albumin Globulin Ratio 1.3 (1.0-2.8); Alkaline Phosphatase 71 U/L (38-126); Aspartate Aminotransferase 71 IU/L (17-59); BUN Creatinine Ratio 18.8 (6-22); Bilirubin Total 0.6 mg/dL (0.2-1.3); Blood Urea Nitrogen 15 mg/dL (9-20); Calcium 9.5 mg/dL (8.4-10.2); Carbon Dioxide 29 mmol/L (22-32); Chloride 104 mmol/L (98-107); Estimated Glomerular Filt Rate > 60.0 mL/min (>60); Globulin 3.3 g/dL (1.7-4.1); Glucose 105 mg/dL (80-110); HEMOLYSIS < 15 (0-50); Potassium 4.2 mmol/L (3.4-5.1); Sodium 141 mmol/L (137-145); Total Protein 7.5 g/dL (6.3-8.2)
== END ==
LOC: LAB 18:40
PROVIDERS: Family Provider Orthopaedic Surgery; PCP Family Medicine Geriatric Medicine; Visit Provider Family Medicine Geriatric Medicine
DX: C22.9 Malignant neoplasm of liver, not specified as primary or secondary (principal)
CPT/HCPCS: 36415; 80053

== ENCOUNTER → 2018-06-09 19:26 | Outpatient (REF) | payer OTHER, SELFPAY ==
[2018-02-27 15:57] VITALS: BMI 21.6
[2018-06-09 20:34] LABS: Add Manual Diff / Slide Review NO; Basophils Absolute Auto 100 /uL (0-100); Basophils Percent Auto 1.1 % (0-2); Eosinophils Absolute Auto 100 /uL (0-450); Eosinophils Percent Auto 1.9 % (2-4); Hematocrit 42.9 % (41-53); Hemoglobin 14.4 g/dL (13.5-17.5); Lymphocytes Absolute Auto 1200 /uL (1100-4500); Lymphocytes Percent Auto 22.9 % (25-40); Mean Corpuscular HGB Conc 33.6 % (30-36); Mean Corpuscular Hemoglobin 33.7 PG (26-34); Mean Corpuscular Volume 100.2 fL (80-100); Monocytes Absolute Auto 400 /uL (0-900); Neutrophils Absolute Auto 3400 /uL (1500-7000); Neutrophils Percent Auto 66.1 % (50-75); Platelet Count 216 X10^3/uL (150-400); Red Blood Cell Count 4.28 X10^6/uL (4.5-5.9); Red Cell Distribution Width 14.1 % (11.6-14.8); White Blood Cell Count 5.2 X10^3/uL (4.5-11.0)
[2018-06-09 20:51] LABS: Alanine Aminotransferase 119 IU/L (21-72); Albumin 4.6 g/dL (3.5-5.0); Albumin Globulin Ratio 1.4 (1.0-2.8); Alkaline Phosphatase 107 U/L (38-126); Aspartate Aminotransferase 126 IU/L (17-59); BUN Creatinine Ratio 18.8 (6-22); Bilirubin Total 0.4 mg/dL (0.2-1.3); Blood Urea Nitrogen 15 mg/dL (9-20); Calcium 9.9 mg/dL (8.4-10.2); Carbon Dioxide 29 mmol/L (22-32); Chloride 103 mmol/L (98-107); Estimated Glomerular Filt Rate > 60.0 mL/min (>60); Globulin 3.3 g/dL (1.7-4.1); Glucose 102 mg/dL (80-110); HEMOLYSIS < 15 (0-50); Potassium 4.3 mmol/L (3.4-5.1); Sodium 142 mmol/L (137-145); Total Protein 7.9 g/dL (6.3-8.2)
[2018-06-09 21:19] LABS: Thyroid Stimulating Hormone 1.48 uIU/mL (0.47-4.68)
== END ==
LOC: LAB 19:26
PROVIDERS: Family Provider Orthopaedic Surgery; PCP Family Medicine Geriatric Medicine; Visit Provider Family Medicine Geriatric Medicine
DX: R63.4 Abnormal weight loss (principal); I10 Essential (primary) hypertension
CPT/HCPCS: 36415; 80053; 84443; 85025

== ENCOUNTER → 2018-08-14 12:59 | Outpatient (CLI) | payer OTHER, SELFPAY ==
[2018-02-27 15:57] VITALS: BMI 21.6
--- NOTE | 2018-08-14 13:03 | DI.MRI.S_ITS ---
PROCEDURE: MR ABDOMEN WO/W CON INDICATIONS: MALIGNANT NEOPLASM LIVER TECHNIQUE: Coronal HASTE, axial 2D FLASH in- and [id number]; axial breath-hold T2 FSE. Dynamic axial VIBE during the administration of contrast; post-contrast coronal VIBE or 2D FLASH with fat saturation from the hepatic dome to the iliac crests. Optional diffusion weighted imaging and ADC may be performed. COMPARISON: Outside Facility, , CT ABDOMEN WITH CONTRAST, 02/24/2015, 13:06. [facility], CT, ABDOMEN W&WO CONTRAST, 05/14/2016, 12:06. Outside Facility, , CT ABDOMEN/PELVIS WITH CONTRAST, 07/10/2018, 13:58. FINDINGS: Image quality: Excellent. Lung bases: No basal pleural effusions. Heart size is normal. Solid organs: Within segment 7 of the right hepatic lobe, there is an ovoid mildly T1 hyperintense and T2 hypointense lesion with an associated focus of low signal corresponding to chemoembolization material on the prior CT. The lesion measures approximately 2.4 x 1.8 cm and demonstrates mild hypervascular enhancement following contrast administration. On delayed images, there is central washout with an enhancing capsule. The findings are compatible with a hepatoma. Posteriorly in the right hepatic lobe within segments 6 and 7, there is peripheral mild subcapsular hyperintense signal on T1 with mild hypointense signal on T2 redemonstrated. There is no associated washout. The findings are compatible with post chemoembolization changes. There is a curvilinear region of low signal intensity within this area without internal enhancement compatible with posttreatment changes. Elsewhere within the liver, there is signal dropout on out of phase imaging consistent with fatty infiltration. There is focal sparing along the gallbladder fossa. The gallbladder appears within normal limits without gallstones. Biliary system is non dilated. Pancreas is normal in morphology. Spleen is normal in size and enhancement. No adrenal nodules. Kidneys demonstrate no hydronephrosis. Nodes and vessels: No retroperitoneal or mesenteric adenopathy by size criteria. Aorta and inferior vena cava are normal in size. Bowel and peritoneum: Visualized bowel loops are normal in caliber. No free fluid. Bones and soft tissues: No ventral hernias. Bone marrow is normal in overall signal. There are postsurgical changes posteriorly within the lower lumbar spine. IMPRESSION: 1. Segment 7 mass lesion in the region of prior chemoembolization is new compared to older studies and demonstrates imaging findings consistent with a hepatoma. 2. Persistent area of mild T1 hyperintensity in the posterior right hepatic lobe likely represents post chemoembolization changes. No evidence or washout. 3. Fatty infiltration of the liver with relative sparing along the gallbladder fossa. Dictated by: Jhonatan Gonzales M.D. on 08/15/2018 at 13:53 Approved by: Jhonatan Gonzales M.D. on 08/15/2018 at 14:26
== END ==
PROVIDERS: PCP Family Medicine Geriatric Medicine; Visit Provider Family Medicine Geriatric Medicine
DX: C22.9 Malignant neoplasm of liver, not specified as primary or secondary (principal)
CPT/HCPCS: 74183; A9579